=== PATIENT | female | born 1950 | race Two or more races ===

== ENCOUNTER 2020-05-07 15:22 | Inpatient (IN) | payer MEDICARE, OTHER ==
[~2020-05-07] VITALS: Ht 157.5 cm; Wt 87.3 kg
[2020-05-07 16:58] LABS: Basophils # (auto) 0.1 10 ^3/uL (0-0.2); Basophils % (auto) 0.5 % (0.0-2.0); Eosinophils # (auto) 0 10 ^3/uL (0-0.8); Eosinophils % (auto) 0.3 % (0.0-7.0); Hemoglobin 13.7 g/dL (12.2-16.2); Lymphocytes # (auto) 1.8 10 ^3/uL (0.4-5.4); Lymphocytes % (auto) 15.4 % (10.0-50.0); Mean Corpuscular Hemoglobin 31.7 pg (28.0-32.0); Mean Corpuscular Hgb Conc. 34.2 g/dL (32.0-36.0); Mean Corpuscular Volume 92.7 fL (80.0-100.0); Monocytes # (auto) 0.6 10 ^3/uL (0-1.3); Monocytes % (auto) 5.1 % (0.0-12.0); Neutrophils % (auto) 78.7 % (37.0-80.0); Nucleated Red Blood Cells % 0.1 %; Platelet Count (auto) 307 10^3/uL (140-450); Red Blood Cells 4.32 10^6/uL (4.0-5.20); Red Cell Distribution Width 13.3 % (11.8-14.3); White Blood Cell 11.5 10^3/uL (4.4-10.8)
[2020-05-07 17:16] LABS: Anion Gap 8 (5-15); Blood Urea Nitrogen 16 mg/dL (7-18); Calcium 9.3 mg/dL (8.5-10.1); Carbon Dioxide 27 mmol/L (21-32); Chloride 101 mmol/L (98-107); Glucose 112 mg/dL (74-106); Magnesium 2.4 mg/dL (1.6-2.6); Potassium 3.9 mmol/L (3.5-5.1); Sodium 136 mmol/L (136-145)
[2020-05-07 17:21] LABS: Alanine Aminotransferase 22 U/L (13-56); Alkaline Phosphatase 90 U/L (45-117); Aspartate Aminotransferase 17 U/L (15-37); BUN/Creatinine Ratio 23.5; Bilirubin, Total 0.4 mg/dL (0.2-1.0); GFR African American 111 mL/min; GFR Non-African American 91 mL/min; Total Protein 8.1 g/dL (6.4-8.2)
[2020-05-07] MEDS ORDERED: LABETALOL HCL 5 MG/ML 4ML SYRINGE IV ONE (18:00)
[2020-05-07 18:02] LABS: Urine Bacteria FEW /hpf (None Seen); Urine Blood Negative /uL (Negative); Urine Specific Gravity 1.008 (1.001-1.035); Urine WBC 386 /hpf (0 - 5)
[2020-05-07] MEDS ORDERED: CIPROFLOXACIN 400MG/200ML 200 ML IV ONE (18:30)
[2020-05-07 18:31] LABS: Amphetamine Screen, Urine NEGATIVE (NEGATIVE); Barbiturate Scree,Urine NEGATIVE (NEGATIVE); Benzodiazephine Screen, Urine NEGATIVE (NEGATIVE); Cannabinoid Screen, Urine NEGATIVE (NEGATIVE); Cocaine Screen, Urine NEGATIVE (NEGATIVE); Opiate Scree,Urine NEGATIVE (NEGATIVE); Phencyclidine Screen, Urine NEGATIVE (NEGATIVE)
[2020-05-07 18:38] LABS: Alcohol, Urine < 3.0 mg/dL (0-10)
[2020-05-07] MEDS: SODIUM CHLORIDE 0.9% 1,000 ML IV SCH (22:17)
[2020-05-07] MEDS ORDERED: MORPHINE SULF INJ 2 MG/ML SYRINGE 1ML IV PRN (22:30)
[2020-05-07] MEDS ORDERED: DOCUSATE SOD 100 MG CAP PO PRN (22:30)
[2020-05-07] MEDS ORDERED: ACETAMINOPHEN 325 MG TAB PO PRN (22:30)
[2020-05-07] MEDS ORDERED: LORazepam 0.5 MG TAB PO PRN (22:30)
[2020-05-07] MEDS ORDERED: ONDANSETRON HCL 4 MG/2 ML VIAL IV PRN (22:30)
[2020-05-08] MEDS ORDERED: ATOR10TA52 PO (06:39)
[2020-05-08] MEDS ORDERED: LOSA25TA38 PO (06:39)
[2020-05-08 06:41] VITALS: BP 147/83
--- NOTE | 2020-05-08 07:04 | NUR ---
Telemetry admit from GEORGIE TAMAYO admitted to Telemetry unit after SBAR received. Patient oriented to Cj douglas RN, unit, room 290, bed B, and unit policies regarding patient care and visiting hours. Patient now on continuous telemetry monitoring, tele box #72 and telemetry reading on arrival to unit is SR 85 W/ PVC'S. Patient VS taken, weighed by bedscale and encouraged to call if they need something. All questions and concerns addressed, patient verbalized understanding.
[2020-05-08 09:00] VITALS: BP 119/71
[2020-05-08] MEDS: CLOPIDOGREL BISULFATE 75 MG TAB PO SCH (09:34)
[2020-05-08] MEDS: ASPirin 81 mg TAB PO SCH (09:34)
[2020-05-08] MEDS: BENAZEPRIL HCL 10 MG TAB PO SCH (09:35)
[2020-05-08] MEDS: LOSARTAN POTASSIUM 25 MG TAB PO SCH (09:36)
[2020-05-08] MEDS ORDERED: CARVEDILOL 3.125 MG TAB PO SCH (10:00)
[2020-05-08 13:00] VITALS: BP 99/54
[2020-05-08] MEDS ORDERED: LORazepam 2MG/ML-1ML VIAL IV ONE (13:00)
[2020-05-08] MEDS ORDERED: cefTRIAXone 1GM/50ML D5W 50 ML IV ONE (13:00)
--- NOTE | 2020-05-08 14:45 | NUR ---
PATIENT OUT OF BED WITH PT.
[2020-05-08] MEDS ORDERED: LORazepam 2MG/ML-1ML VIAL IV PRN (16:15)
[2020-05-08 16:34] LABS: Cholesterol 230 mg/dL (< 200)
[2020-05-08 16:36] LABS: HDL Cholesterol 52 mg/dL (40-59); LDL Cholesterol 153 mg/dL (< 100); Triglycerides 203 mg/dL (< 150)
[2020-05-08 17:00] VITALS: BP 115/59
[2020-05-08] MEDS: SODIUM CHLORIDE 0.9% 1,000 ML IV SCH (17:12)
[2020-05-08 22:00] VITALS: BP 139/83
[2020-05-08] MEDS: CARVEDILOL 3.125 MG TAB PO SCH (23:38)
[2020-05-08] MEDS: ATORVASTATIN 20 MG TAB PO SCH (23:38)
[2020-05-09 05:30] VITALS: BP 120/70
[2020-05-09 06:48] LABS: Basophils # (auto) 0 10 ^3/uL (0-0.2); Basophils % (auto) 0.3 % (0.0-2.0); Eosinophils # (auto) 0.2 10 ^3/uL (0-0.8); Eosinophils % (auto) 1.9 % (0.0-7.0); Hematocrit 37.6 % (36.0-46.0); Hemoglobin 12.6 g/dL (12.2-16.2); Lymphocytes # (auto) 2.4 10 ^3/uL (0.4-5.4); Mean Corpuscular Hemoglobin 31.3 pg (28.0-32.0); Mean Corpuscular Hgb Conc. 33.4 g/dL (32.0-36.0); Mean Corpuscular Volume 93.8 fL (80.0-100.0); Monocytes # (auto) 0.6 10 ^3/uL (0-1.3); Monocytes % (auto) 6.7 % (0.0-12.0); Neutrophils # (auto) 5.7 10 ^3/uL (1.6-8.6); Neutrophils % (auto) 64.1 % (37.0-80.0); Nucleated Red Blood Cells % 0.1 %; Platelet Count (auto) 305 10^3/uL (140-450); Red Blood Cells 4.01 10^6/uL (4.0-5.20); Red Cell Distribution Width 13.7 % (11.8-14.3); White Blood Cell 8.8 10^3/uL (4.4-10.8)
[2020-05-09 07:12] LABS: BUN/Creatinine Ratio 31.7; Calcium 8.7 mg/dL (8.5-10.1); Magnesium 2.6 mg/dL (1.6-2.6)
--- NOTE | 2020-05-09 07:30 | NUR ---
Opening Shift Note RECEIVED REPORT FROM NOC RN. Assumed care of patient, awake and alert. No S/S of distress/SOB or pain. BED IN LOWEST, LOCKED POSITION WITH SIDERAILS UP x2 AND CALL LIGHT WITHIN REACH. Instructed on POC and to call for assist PRN, will continue to monitor for changes Q1hr and PRN.
[2020-05-09 09:00] VITALS: BP 122/63
[2020-05-09] MEDS: SODIUM CHLORIDE 0.9% 1,000 ML IV SCH (09:04)
[2020-05-09] MEDS: cefTRIAXone 1GM/50ML D5W 50 ML IV SCH (09:04)
[2020-05-09] MEDS: LOSARTAN POTASSIUM 25 MG TAB PO SCH (10:21)
[2020-05-09] MEDS: ASPirin 81 mg TAB PO SCH (10:21)
[2020-05-09] MEDS: CARVEDILOL 3.125 MG TAB PO SCH ×2 (10:22→22:11)
[2020-05-09] MEDS: BENAZEPRIL HCL 10 MG TAB PO SCH (10:22)
[2020-05-09] MEDS: CLOPIDOGREL BISULFATE 75 MG TAB PO SCH (10:22)
[2020-05-09 13:00] VITALS: BP 129/77
[2020-05-09] MEDS ORDERED: MORPHINE SULF INJ 2 MG/ML SYRINGE 1ML IV PRN (15:15)
[2020-05-09 17:00] VITALS: BP 116/73
--- NOTE | 2020-05-09 19:20 | NUR ---
Opening Shift Note Assumed care of patient. Patient is awake, alert, and oriented x 4. No S/S of respiratory distress noted. No pain reported. Bed in the lowest position, brakes locked, bed rails up x 2, and call light within reach. IV is asymptomatic and patent. Will continue to monitor. Patient was instructed on POC and to call for assist as needed. Will continue to monitor for changes Q1hr and PRN.
[2020-05-09 20:00] VITALS: BP 125/66
[2020-05-09 22:00] VITALS: BP 125/66
[2020-05-09] MEDS: ATORVASTATIN 20 MG TAB PO SCH (22:10)
[2020-05-10 05:00] VITALS: BP 124/57
--- NOTE | 2020-05-10 07:35 | NUR ---
Endorsed care to day shift RN.
[2020-05-10 08:00] VITALS: BP 124/57
[2020-05-10 09:00] VITALS: BP 131/73
[2020-05-10] MEDS: CARVEDILOL 3.125 MG TAB PO SCH ×2 (10:00→10:25)
[2020-05-10] MEDS: cefTRIAXone 1GM/50ML D5W 50 ML IV SCH (10:23)
[2020-05-10] MEDS: ASPirin 81 mg TAB PO SCH (10:24)
[2020-05-10] MEDS: LOSARTAN POTASSIUM 25 MG TAB PO SCH (10:24)
--- NOTE | 2020-05-10 10:40 | NUR ---
PHYSICAL THERAPY WALKING WITH PATIENT.
--- NOTE | 2020-05-10 11:42 | NUR ---
DR SHAIKH GALVAN
[2020-05-10 13:00] VITALS: BP 119/67
[2020-05-10] MEDS ORDERED: ASP81EC PO (13:05)
[2020-05-10] MEDS ORDERED: ATOR20TA PO (13:05)
--- NOTE | 2020-05-10 14:20 | NUR ---
CALLED VINOD FOR AN UPDATE ON HOME HEALTH DC. SHE IS FAXING PAPERS PATIENT LIVES IN [place]. WILL WAIT FOR AN UPDATE AND CALL DR PEACE TO NOTIFY. PER VINOD WE CAN DISCHARGE PATIENT AND HHC CAN FOLLOW UP. I WILL NOTIFY DR PEACE.
[2020-05-10 14:53] VITALS: BP 124/57
--- NOTE | 2020-05-10 15:00 | NUR ---
PER DR SHAIKH CADET TO DISCHARGE PATIENT HOME HEALTH CAN BE SET UP ONCE PATIENT IS HOME, PATIENT IS OUT OF AREA AND SOCIAL WORKERS ARE WORKING ON IT PER RENETTA TOM NOTE.
--- NOTE | 2020-05-10 15:01 | NUR ---
I called [facility] [phone] and spoke with Material Disposition Inspector Jenny regarding home health order-faxed order to her [phone]-per Jenny she will work on the order and call me back when she has an accepting home health agency-I provided her with patient's [place] address and phone number.
--- NOTE | 2020-05-10 17:19 | NUR ---
Discharge instructions given as ordered. Encourage to follow up with PMD as instructed. All questions and concerns addressed. Patient verbalized understanding. Medication reconciliation form completed and copy given to patient. No Home medications held in Pharmacy and none to be returned to patient, and no needed vaccines given. IV removed with catheter intact, pressure dressing applied. Telemetry unit returned to ICU. Patient taken to vehicle via wheelchair with all personal belongings, accompanied by staff and family member. No distress noted at time of departure.
--- NOTE | 2020-05-10 17:26 | NUR ---
Assessment Patient is a 70-year-old female who is alert and oriented. Patient ask me to speak to her daughter Nicky ) regarding any discharge plan. Per patient daughter Nicky prior to admission patient lived home with her in the [facility]. Per Nicky patient was visiting family in [place] when she began to feel ill. Per Nicky patient will return to her prior living arrangement post discharge and family will transport her home. Advised Nicky there is a social service consult for safety evaluation, physical therapy, medication management and vitals. Informed Nicky clinical information will be faxed to contracted agency. Informed Nicky she has the right to participate in all discharge planning. Nicky verbalized understanding and agreed to discharge plan. Informed Sammie. resource efficiency manager Joselyn advised me patient health plan will work on finding a home health agency for patient. updated patient and bedside nurse. Addendum: 05/10/20 at 1732 by VINOD PETERSEN Amended: Links added.
== END 2020-05-10 17:20 | disposition home health service (06) | DRG 69 ==
LOC: ER 15:22 → TELE 15:23 → TELE-WESTW 05-08 06:05
PROVIDERS: ADMIT Hospitalist; ATTEND Internal Medicine
DX: G45.9 Transient cerebral ischemic attack, unspecified (principal); I47.2 Ventricular tachycardia; G81.91 Hemiplegia, unspecified affecting right dominant side; N39.0 Urinary tract infection, site not specified; R65.10 Systemic inflammatory response syndrome (SIRS) of non-infectious origin without acute organ dysfunction; E78.5 Hyperlipidemia, unspecified; I10 Essential (primary) hypertension; F17.200 Nicotine dependence, unspecified, uncomplicated; E66.01 Morbid (severe) obesity due to excess calories; G56.00 Carpal tunnel syndrome, unspecified upper limb; Z79.02 Long term (current) use of antithrombotics/antiplatelets; Z68.35 Body mass index [BMI] 35.0-35.9, adult; Z83.3 Family history of diabetes mellitus
CPT/HCPCS: 36415; 70450; 70545; 70551; 80048; 80053; 80061; 80307; 81001; 83735; 83880; 84443; 84484; 85025; 93005; 93306; 93886; 96365; 97116; 97163; G0378; J0696